=== PATIENT | female | born 1945 | race Hispanic/Latino ===

== ENCOUNTER 2017-09-20 16:52 | Inpatient (IN) | payer MEDICARE ==
[~2017-09-20] VITALS: Ht 162.6 cm; Wt 81.4 kg
[2017-09-20 17:33] LABS: BASOPHILS % (AUTO) 0.1 % (0.0-5.0); EOSINOPHILS % (AUTO) 0.2 % (0.0-8.0); LYMPHOCYTES % (AUTO) 2.4 % (21.0-51.0); MEAN CORPUSCULAR HEMOGLOBIN 36.8 pg (27.0-33.0); MEAN CORPUSCULAR HGB CONC 35.8 g/dL (32.0-36.0); MEAN CORPUSCULAR VOLUME 102.6 fL (79-99); MONOCYTES % (AUTO) 5.2 % (3.0-13.0); NEUTROPHILS % (AUTO) 92.1 % (40.0-77.0); PLATELET COUNT (AUTO) 70 K/uL (130-400); RED BLOOD CELL COUNT(AUTO) 3.02 MIL/uL (4.00-5.50); RED CELL DISTRIBUTION WIDTH 16.8 % (11.0-15.5); WHITE BLOOD COUNT (AUTO) 9.1 K/uL (4.8-10.8)
[2017-09-20] MEDS ORDERED: ONDANSETRON HCL 4 MG/2 ML VIAL ONE (17:33)
[2017-09-20] MEDS ORDERED: ACETAMINOPHEN EXTRA STRENGTH 500 MG TABLET ONE (17:45)
[2017-09-20 17:46] LABS: CREATININE 2.6 mg/dL (0.5-1.5); POTASSIUM 4.3 mmol/L (3.5-5.1)
[2017-09-20 17:50] LABS: INR 1.15 (0.85-1.15); PARTIAL THROMBOPLASTIN TIME 30.3 SEC (26.3-35.5)
[2017-09-20] MEDS ORDERED: CEFTRIAXONE SODIUM 1 GM ONE (17:57)
[2017-09-20 18:12] LABS: BILIRUBIN,TOTAL 1.9 mg/dL (0.2-1.0); CREATINE KINASE MB 2.1 ng/mL (0.5-3.6); TOTAL PROTEIN, SERUM 7.5 g/dL (6.0-8.3)
[2017-09-20 18:13] LABS: TROPONIN I 1.91 ng/mL (0.00-0.06)
[2017-09-20] MEDS ORDERED: INSULIN HUMULIN R 100 UNIT/ML 3ML ONE (18:52)
[2017-09-20 19:11] LABS: APPEARANCE,URINE CLOUDY (CLEAR); BILIRUBIN,URINE NEGATIVE (NEGATIVE); COLOR,URINE YELLOW (YELLOW); GLUCOSE, URINE (UA) 100 mg/dL (NEGATIVE); KETONES,URINE NEGATIVE (NEGATIVE); LEUKOCYTE ESTERASE ,URINE MODERATE (NEGATIVE); NITRATE,URINE NEGATIVE (NEGATIVE); OCCULT BLOOD,URINE LARGE (NEGATIVE); PROTEIN,URINE TRACE (NEGATIVE); UROBILINOGEN,URINE 0.2 mg/dL (0.2-1.0)
[2017-09-20] MEDS ORDERED: ASPIRIN 325 MG TABLET ONE (20:19)
[2017-09-20 20:34] LABS: BACTERIA,URINE Moderate /HPF (None Seen)
[2017-09-20 20:35] LABS: SQUAMOUS EPITHELIAL CELL,UR Few /LPF (0-2)
[2017-09-20] MEDS ORDERED: NITROGLYCERIN 0.4 MG SL TAB SL PRN (20:45)
[2017-09-20] MEDS ORDERED: LIDOCAINE HCL-MPF 1% 2ML VIAL IJ PRN (20:45)
[2017-09-20] MEDS ORDERED: ACETAMINOPHEN 325 MG TAB PO PRN (20:45)
[2017-09-20] MEDS ORDERED: POTASSIUM CHLORIDE 20MEQ/100ML 100 ML IV PRN (20:45)
[2017-09-20] MEDS ORDERED: DEXTROSE 50%-WATER 50 ML DISP.SYRIN IV PRN (20:45)
[2017-09-20] MEDS: SODIUM CHLORIDE 0.9% 1000ML 1,000 ML IV SCH (20:45)
[2017-09-20] MEDS ORDERED: GLUCAGON 1MG KIT 1 MG ML IM PRN (20:45)
[2017-09-20] MEDS ORDERED: POTASSIUM CHLORIDE 10% ELIXIR 20 MEQ/15 ML UDCUP PO PRN (20:45)
[2017-09-20] MEDS ORDERED: LACTULOSE 20 GM/30 ML UDCUP PO PRN (20:45)
[2017-09-20] MEDS: INSULIN R PO SSI SQ SCH (21:00)
[2017-09-20] MEDS: METOPROLOL TARTRATE 25 MG TAB PO SCH (21:00)
[2017-09-20] MEDS ORDERED: METOPROLOL TARTRATE 25 MG TAB ONE (21:38)
[2017-09-20] MEDS ORDERED: SODIUM CHLORIDE 0.9% 1000ML 1,000 ML IV ONE (21:38)
[2017-09-21] VITALS (8 sets, daily range): BP systolic 81–118; BP diastolic 40–74
[2017-09-21 00:17] LABS: CREATINE KINASE MB 1.3 ng/mL (0.5-3.6)
[2017-09-21 00:19] LABS: TROPONIN I 1.68 ng/mL (0.00-0.06)
[2017-09-21] MEDS ORDERED: CEFTRIAXONE 1GM/D5W 50ML 50 ML IV SCH (00:45)
[2017-09-21] MEDS ORDERED: ALLO300T2 PO (01:14)
[2017-09-21] MEDS ORDERED: VITA-300 PO (01:14)
[2017-09-21] MEDS ORDERED: LEVO25TA54 PO (01:14)
[2017-09-21] MEDS ORDERED: FOLI1TAB15 PO (01:14)
[2017-09-21] MEDS ORDERED: GLIP10TA9 PO (01:14)
[2017-09-21] MEDS ORDERED: FEXO-59 PO (01:14)
[2017-09-21] MEDS ORDERED: CYAN250014 PO (01:14)
[2017-09-21] MEDS ORDERED: TRAM50TA4 PO (01:14)
[2017-09-21] MEDS ORDERED: FURO20TA6 PO (01:14)
[2017-09-21] MEDS ORDERED: HYDR25TA PO (01:14)
[2017-09-21] MEDS ORDERED: KCL10IV IV (01:14)
[2017-09-21] MEDS ORDERED: SAXA1TBM3 PO (01:14)
[2017-09-21] MEDS ORDERED: LISI40TA4 PO (01:14)
[2017-09-21] MEDS ORDERED: ASPI-555 PO (01:14)
[2017-09-21] MEDS ORDERED: CEFTRIAXONE SODIUM 1 GM IVP SCH (02:00)
[2017-09-21 03:47] LABS: HEMATOCRIT 26.7 % (36-48); MEAN CORPUSCULAR HEMOGLOBIN 35.7 pg (27.0-33.0); MEAN CORPUSCULAR HGB CONC 34.3 g/dL (32.0-36.0); MEAN CORPUSCULAR VOLUME 104.2 fL (79-99); PLATELET COUNT (AUTO) 58 K/uL (130-400); RED BLOOD CELL COUNT(AUTO) 2.56 MIL/uL (4.00-5.50); RED CELL DISTRIBUTION WIDTH 16.7 % (11.0-15.5); WHITE BLOOD COUNT (AUTO) 7.7 K/uL (4.8-10.8)
[2017-09-21 03:55] LABS: INR 1.19 (0.85-1.15); PARTIAL THROMBOPLASTIN TIME 32.4 SEC (26.3-35.5); PROTHROMBIN TIME 12.5 SEC (9.6-11.6)
[2017-09-21 03:59] LABS: BAND NEUTROPHILS % (MANUAL) 22 % (0-2); LYMPHOCYTES % (MANUAL) 10 % (22-44); MAN.DIFF COMMENT-IMPRESSION MANUAL DIFFERENTIAL; MONOCYTES % (MANUAL) 5 % (2-9); SEGMENTED NEUTROPHILS % 63 % (40-70)
[2017-09-21 04:00] LABS: PLATELET MORPHOLOGY COMMENT MARKED DEC
[2017-09-21 04:01] LABS: CREATININE 2.2 mg/dL (0.5-1.5); POTASSIUM 4.8 mmol/L (3.5-5.1)
[2017-09-21] MEDS: ACETAMINOPHEN 325 MG TAB PO PRN (06:04)
[2017-09-21 06:35] LABS: CREATINE KINASE MB 2.7 ng/mL (0.5-3.6)
[2017-09-21 06:37] LABS: TROPONIN I 1.05 ng/mL (0.00-0.06)
[2017-09-21] MEDS: INSULIN R PO SSI SQ SCH ×4 (06:43→22:00)
[2017-09-21] MEDS: SODIUM CHLORIDE 0.9% 1000ML 1,000 ML IV SCH ×2 (07:45→16:31)
[2017-09-21] MEDS: METOPROLOL TARTRATE 25 MG TAB PO SCH ×2 (07:51→21:51)
[2017-09-21] MEDS: ASPIRIN 325 MG TABLET PO SCH (07:51)
[2017-09-21] MEDS ORDERED: CEFTRIAXONE 2GM+NS 100ML 100 ML IV SCH (09:45)
[2017-09-21] MEDS: CEFTRIAXONE SODIUM 2 GM VIAL IVP SCH (09:46)
[2017-09-21] MEDS: WATER FOR INJECTION,STERILE 20 ML VIAL IJ SCH (09:47)
[2017-09-21] MEDS: FAMOTIDINE 20MG TAB 20 MG TAB PO SCH (09:49)
[2017-09-21] MEDS: TRAMADOL HCL 50 MG TABLET PO PRN (21:50)
[2017-09-21] MEDS: ALLOPURINOL 300 MG TABLET PO SCH (21:51)
[2017-09-21] MEDS: GLIPIZIDE 5 MG TABLET PO SCH (21:53)
[2017-09-22] MEDS: SODIUM CHLORIDE 0.9% 1000ML 1,000 ML IV SCH (01:55)
[2017-09-22 04:05] LABS: HEMATOCRIT 27.7 % (36-48); MEAN CORPUSCULAR HEMOGLOBIN 35.5 pg (27.0-33.0); MEAN CORPUSCULAR HGB CONC 34.7 g/dL (32.0-36.0); MEAN CORPUSCULAR VOLUME 102.2 fL (79-99); PLATELET COUNT (AUTO) 63 K/uL (130-400); RED BLOOD CELL COUNT(AUTO) 2.71 MIL/uL (4.00-5.50); RED CELL DISTRIBUTION WIDTH 16.6 % (11.0-15.5); WHITE BLOOD COUNT (AUTO) 8.2 K/uL (4.8-10.8)
[2017-09-22 04:08] VITALS: BP 111/50
[2017-09-22 04:11] LABS: CREATININE 1.7 mg/dL (0.5-1.5); POTASSIUM 3.8 mmol/L (3.5-5.1)
[2017-09-22 04:19] LABS: B-TYPE NATRIURETIC PEPTIDE 257 pg/mL (0-100)
[2017-09-22] MEDS: INSULIN R PO SSI SQ SCH ×4 (06:04→21:11)
[2017-09-22 07:39] VITALS: BP 113/46
[2017-09-22] MEDS: CEFTRIAXONE SODIUM 2 GM VIAL IVP SCH (10:52)
[2017-09-22] MEDS: CETIRIZINE HCL 5 MG TABLET PO SCH (10:52)
[2017-09-22] MEDS: WATER FOR INJECTION,STERILE 20 ML VIAL IJ SCH (10:52)
[2017-09-22] MEDS: GLIPIZIDE 5 MG TABLET PO SCH ×2 (10:53→21:04)
[2017-09-22] MEDS: ALLOPURINOL 300 MG TABLET PO SCH ×2 (10:54→21:03)
[2017-09-22] MEDS: FOLIC ACID 1 MG TABLET PO SCH (10:54)
[2017-09-22] MEDS: CYANOCOBALAMIN (VITAMIN B-12) 1,000 MCG TABLET PO SCH (10:54)
[2017-09-22] MEDS: ASPIRIN 325 MG TABLET PO SCH (10:54)
[2017-09-22] MEDS: METOPROLOL TARTRATE 25 MG TAB PO SCH ×2 (10:54→21:04)
[2017-09-22] MEDS: FAMOTIDINE 20MG TAB 20 MG TAB PO SCH (10:54)
[2017-09-22] MEDS: LEVOTHYROXINE 25 MCG TABLET PO SCH (10:54)
[2017-09-22] MEDS: **HM** VIT D3 1000 UNITS PO SCH (10:55)
[2017-09-22 11:31] VITALS: BP 141/58
[2017-09-22] MEDS ORDERED: FUROSEMIDE 10 MG/ML 2ML VIAL IV SCH (11:57)
[2017-09-22 16:23] VITALS: BP 137/64
[2017-09-22] MEDS: ACETAMINOPHEN 325 MG TAB PO PRN (16:33)
[2017-09-22 19:49] VITALS: BP 106/50
[2017-09-22] MEDS: OSELTAMIVIR PHOSPHATE 75 MG CAP PO SCH (21:03)
[2017-09-22 23:45] VITALS: BP 103/47
[2017-09-23 03:31] LABS: HEMATOCRIT 29.3 % (36-48); MEAN CORPUSCULAR HEMOGLOBIN 36.2 pg (27.0-33.0); MEAN CORPUSCULAR HGB CONC 35.6 g/dL (32.0-36.0); MEAN CORPUSCULAR VOLUME 101.6 fL (79-99); PLATELET COUNT (AUTO) 54 K/uL (130-400); RED BLOOD CELL COUNT(AUTO) 2.89 MIL/uL (4.00-5.50); RED CELL DISTRIBUTION WIDTH 16.1 % (11.0-15.5); WHITE BLOOD COUNT (AUTO) 6.7 K/uL (4.8-10.8)
[2017-09-23 03:45] LABS: CREATININE 1.7 mg/dL (0.5-1.5); POTASSIUM 3.9 mmol/L (3.5-5.1)
[2017-09-23 04:00] VITALS: BP 149/60
[2017-09-23 04:37] LABS: B-TYPE NATRIURETIC PEPTIDE 335 pg/mL (0-100)
[2017-09-23] MEDS: INSULIN R PO SSI SQ SCH ×4 (06:22→20:32)
[2017-09-23 07:24] VITALS: BP 137/62
[2017-09-23] MEDS: ACETAMINOPHEN 325 MG TAB PO PRN (07:28)
[2017-09-23] MEDS ORDERED: MEROPENEM 1GM IVPB PREMIXED 1 GM IV SCH (08:15)
[2017-09-23] MEDS: **HM** VIT D3 1000 UNITS PO SCH (09:00)
[2017-09-23] MEDS: CYANOCOBALAMIN (VITAMIN B-12) 1,000 MCG TABLET PO SCH (09:13)
[2017-09-23] MEDS: GLIPIZIDE 5 MG TABLET PO SCH ×2 (09:13→20:34)
[2017-09-23] MEDS: MEROPENEM 1 GM VIAL IVP SCH ×2 (09:13→20:33)
[2017-09-23] MEDS: FAMOTIDINE 20MG TAB 20 MG TAB PO SCH (09:13)
[2017-09-23] MEDS: ALLOPURINOL 300 MG TABLET PO SCH ×2 (09:13→20:33)
[2017-09-23] MEDS: CETIRIZINE HCL 5 MG TABLET PO SCH (09:13)
[2017-09-23] MEDS: FOLIC ACID 1 MG TABLET PO SCH (09:13)
[2017-09-23] MEDS: OSELTAMIVIR PHOSPHATE 75 MG CAP PO SCH ×2 (09:13→20:33)
[2017-09-23] MEDS: METOPROLOL TARTRATE 25 MG TAB PO SCH ×2 (09:13→20:34)
[2017-09-23] MEDS: LEVOTHYROXINE 25 MCG TABLET PO SCH (09:13)
[2017-09-23 11:14] VITALS: BP 95/43
[2017-09-23] MEDS: ASPIRIN 81 MG EC TAB PO SCH (11:33)
[2017-09-23 16:33] VITALS: BP 134/64
[2017-09-23 19:55] VITALS: BP 152/60
[2017-09-23 23:54] VITALS: BP 136/54
[2017-09-24] MEDS: ACETAMINOPHEN 325 MG TAB PO PRN (03:15)
[2017-09-24 03:30] VITALS: BP 119/57
[2017-09-24 04:30] LABS: HEMATOCRIT 24.3 % (36-48); MEAN CORPUSCULAR HEMOGLOBIN 37.2 pg (27.0-33.0); MEAN CORPUSCULAR HGB CONC 36.7 g/dL (32.0-36.0); MEAN CORPUSCULAR VOLUME 101.2 fL (79-99); PLATELET COUNT (AUTO) 59 K/uL (130-400); RED BLOOD CELL COUNT(AUTO) 2.41 MIL/uL (4.00-5.50); RED CELL DISTRIBUTION WIDTH 16.2 % (11.0-15.5); WHITE BLOOD COUNT (AUTO) 5.3 K/uL (4.8-10.8)
[2017-09-24 04:43] LABS: CREATININE 1.4 mg/dL (0.5-1.5); POTASSIUM 3.6 mmol/L (3.5-5.1)
[2017-09-24] MEDS: INSULIN R PO SSI SQ SCH ×4 (06:21→22:20)
[2017-09-24 07:31] VITALS: BP 117/54
[2017-09-24] MEDS: FAMOTIDINE 20MG TAB 20 MG TAB PO SCH (08:37)
[2017-09-24] MEDS: CYANOCOBALAMIN (VITAMIN B-12) 1,000 MCG TABLET PO SCH (08:37)
[2017-09-24] MEDS: METOPROLOL TARTRATE 25 MG TAB PO SCH ×2 (08:37→22:14)
[2017-09-24] MEDS: ALLOPURINOL 300 MG TABLET PO SCH ×2 (08:37→22:14)
[2017-09-24] MEDS: FOLIC ACID 1 MG TABLET PO SCH (08:37)
[2017-09-24] MEDS: ASPIRIN 81 MG EC TAB PO SCH (08:37)
[2017-09-24] MEDS: OSELTAMIVIR PHOSPHATE 75 MG CAP PO SCH ×2 (08:37→22:20)
[2017-09-24] MEDS: LEVOTHYROXINE 25 MCG TABLET PO SCH (08:37)
[2017-09-24] MEDS: CETIRIZINE HCL 5 MG TABLET PO SCH (08:37)
[2017-09-24] MEDS: MEROPENEM 1 GM VIAL IVP SCH ×2 (08:38→22:15)
[2017-09-24] MEDS: GLIPIZIDE 5 MG TABLET PO SCH ×2 (08:38→22:15)
[2017-09-24] MEDS: **HM** VIT D3 1000 UNITS PO SCH (08:41)
[2017-09-24] MEDS: TRAMADOL HCL 50 MG TABLET PO PRN (09:36)
[2017-09-24 11:42] VITALS: BP 129/57
[2017-09-24] MEDS: POTASSIUM CHLORIDE 20 MEQ ERTAB PO PRN ×2 (14:20→16:17)
[2017-09-24 16:32] VITALS: BP 127/61
[2017-09-24 20:00] VITALS: BP 126/56
[2017-09-25] VITALS (7 sets, daily range): BP systolic 111–141; BP diastolic 48–63
[2017-09-25] MEDS: TRAMADOL HCL 50 MG TABLET PO PRN (03:05)
[2017-09-25 03:46] LABS: HEMATOCRIT 26.7 % (36-48); MEAN CORPUSCULAR HEMOGLOBIN 35.7 pg (27.0-33.0); MEAN CORPUSCULAR HGB CONC 35.3 g/dL (32.0-36.0); MEAN CORPUSCULAR VOLUME 101.3 fL (79-99); PLATELET COUNT (AUTO) 64 K/uL (130-400); RED BLOOD CELL COUNT(AUTO) 2.63 MIL/uL (4.00-5.50); RED CELL DISTRIBUTION WIDTH 16.2 % (11.0-15.5); WHITE BLOOD COUNT (AUTO) 5.3 K/uL (4.8-10.8)
[2017-09-25] MEDS: INSULIN R PO SSI SQ SCH ×4 (06:07→21:00)
[2017-09-25] MEDS: **HM** VIT D3 1000 UNITS PO SCH (09:00)
[2017-09-25] MEDS: ASPIRIN 81 MG EC TAB PO SCH (09:18)
[2017-09-25] MEDS: FOLIC ACID 1 MG TABLET PO SCH (09:18)
[2017-09-25] MEDS: ALLOPURINOL 300 MG TABLET PO SCH ×2 (09:18→21:40)
[2017-09-25] MEDS: LEVOTHYROXINE 25 MCG TABLET PO SCH (09:18)
[2017-09-25] MEDS: METOPROLOL TARTRATE 25 MG TAB PO SCH ×2 (09:18→21:40)
[2017-09-25] MEDS: CETIRIZINE HCL 5 MG TABLET PO SCH (09:18)
[2017-09-25] MEDS: GLIPIZIDE 5 MG TABLET PO SCH ×2 (09:19→21:40)
[2017-09-25] MEDS: FAMOTIDINE 20MG TAB 20 MG TAB PO SCH (09:19)
[2017-09-25] MEDS: OSELTAMIVIR PHOSPHATE 75 MG CAP PO SCH ×2 (09:21→21:40)
[2017-09-25] MEDS: MEROPENEM 1 GM VIAL IVP SCH ×2 (09:21→21:40)
[2017-09-25] MEDS: CYANOCOBALAMIN (VITAMIN B-12) 1,000 MCG TABLET PO SCH (09:23)
[2017-09-26 04:00] VITALS: BP 120/58
[2017-09-26 04:08] LABS: HEMATOCRIT 27.4 % (36-48); MEAN CORPUSCULAR HEMOGLOBIN 36.3 pg (27.0-33.0); MEAN CORPUSCULAR HGB CONC 35.6 g/dL (32.0-36.0); MEAN CORPUSCULAR VOLUME 102.1 fL (79-99); PLATELET COUNT (AUTO) 76 K/uL (130-400); RED BLOOD CELL COUNT(AUTO) 2.68 MIL/uL (4.00-5.50); RED CELL DISTRIBUTION WIDTH 16.4 % (11.0-15.5); WHITE BLOOD COUNT (AUTO) 5.5 K/uL (4.8-10.8)
[2017-09-26] MEDS: INSULIN R PO SSI SQ SCH ×3 (06:20→17:14)
[2017-09-26 07:34] VITALS: BP 117/44
[2017-09-26] MEDS: ASPIRIN 81 MG EC TAB PO SCH (08:15)
[2017-09-26] MEDS: FOLIC ACID 1 MG TABLET PO SCH (08:15)
[2017-09-26] MEDS: CETIRIZINE HCL 5 MG TABLET PO SCH (08:15)
[2017-09-26] MEDS: FAMOTIDINE 20MG TAB 20 MG TAB PO SCH (08:15)
[2017-09-26] MEDS: ALLOPURINOL 300 MG TABLET PO SCH ×2 (08:15→20:09)
[2017-09-26] MEDS: LEVOTHYROXINE 25 MCG TABLET PO SCH (08:15)
[2017-09-26] MEDS: CYANOCOBALAMIN (VITAMIN B-12) 1,000 MCG TABLET PO SCH (08:15)
[2017-09-26] MEDS: OSELTAMIVIR PHOSPHATE 75 MG CAP PO SCH ×2 (08:16→20:09)
[2017-09-26] MEDS: GLIPIZIDE 5 MG TABLET PO SCH ×2 (08:16→20:10)
[2017-09-26] MEDS: **HM** VIT D3 1000 UNITS PO SCH (08:16)
[2017-09-26] MEDS: MEROPENEM 1 GM VIAL IVP SCH ×2 (08:16→20:09)
[2017-09-26] MEDS: METOPROLOL TARTRATE 25 MG TAB PO SCH ×2 (08:16→20:10)
[2017-09-26 11:32] VITALS: BP 119/45
[2017-09-26 16:09] VITALS: BP 122/52
[2017-09-26 19:46] VITALS: BP 139/50
[2017-09-27 01:42] VITALS: BP 131/58
[2017-09-27 03:51] LABS: HEMATOCRIT 26.7 % (36-48); MEAN CORPUSCULAR HEMOGLOBIN 35.2 pg (27.0-33.0); MEAN CORPUSCULAR HGB CONC 34.5 g/dL (32.0-36.0); PLATELET COUNT (AUTO) 74 K/uL (130-400); RED BLOOD CELL COUNT(AUTO) 2.62 MIL/uL (4.00-5.50); RED CELL DISTRIBUTION WIDTH 16.4 % (11.0-15.5); WHITE BLOOD COUNT (AUTO) 5.4 K/uL (4.8-10.8)
[2017-09-27 04:00] VITALS: BP 131/53
[2017-09-27 04:07] LABS: CREATININE 1.3 mg/dL (0.5-1.5); POTASSIUM 4.7 mmol/L (3.5-5.1)
[2017-09-27] MEDS: INSULIN R PO SSI SQ SCH ×2 (06:27→11:30)
[2017-09-27 07:55] VITALS: BP 122/52
[2017-09-27] MEDS: METOPROLOL TARTRATE 25 MG TAB PO SCH (09:00)
[2017-09-27] MEDS: OSELTAMIVIR PHOSPHATE 75 MG CAP PO SCH (09:00)
[2017-09-27] MEDS: FOLIC ACID 1 MG TABLET PO SCH (09:00)
[2017-09-27] MEDS: CETIRIZINE HCL 5 MG TABLET PO SCH (09:00)
[2017-09-27] MEDS: CYANOCOBALAMIN (VITAMIN B-12) 1,000 MCG TABLET PO SCH (09:00)
[2017-09-27] MEDS: **HM** VIT D3 1000 UNITS PO SCH (09:00)
[2017-09-27] MEDS: ASPIRIN 81 MG EC TAB PO SCH (09:00)
[2017-09-27] MEDS: MEROPENEM 1 GM VIAL IVP SCH (09:00)
[2017-09-27] MEDS: FAMOTIDINE 20MG TAB 20 MG TAB PO SCH (09:00)
[2017-09-27] MEDS: ALLOPURINOL 300 MG TABLET PO SCH (09:00)
[2017-09-27] MEDS: GLIPIZIDE 5 MG TABLET PO SCH (09:00)
[2017-09-27 11:39] VITALS: BP 122/55
[2017-09-28] MEDS ORDERED: LEVOTHYROXINE 25 MCG TABLET PO SCH (06:30)
== END 2017-09-27 18:05 | DRG 871 ==
LOC: EDH 16:52 → EDHIP 20:14 → OBSVTOIN 20:14 → 2AH 09-21 00:36
PROVIDERS: ADMIT Internal Medicine; ATTEND Internal Medicine
DX: A41.9 Sepsis, unspecified organism (principal); I21.4 Non-ST elevation (NSTEMI) myocardial infarction; R65.21 Severe sepsis with septic shock; N17.9 Acute kidney failure, unspecified; E11.21 Type 2 diabetes mellitus with diabetic nephropathy; D69.6 Thrombocytopenia, unspecified; E11.22 Type 2 diabetes mellitus with diabetic chronic kidney disease; E11.65 Type 2 diabetes mellitus with hyperglycemia; N18.3 Chronic kidney disease, stage 3 (moderate); N39.0 Urinary tract infection, site not specified; E87.1 Hypo-osmolality and hyponatremia; I13.0 Hypertensive heart and chronic kidney disease with heart failure and stage 1 through stage 4 chronic kidney disease, or unspecified chronic kidney disease; I50.32 Chronic diastolic (congestive) heart failure; L03.311 Cellulitis of abdominal wall; B96.20 Unspecified Escherichia coli [E. coli] as the cause of diseases classified elsewhere; D46.9 Myelodysplastic syndrome, unspecified; B96.89 Other specified bacterial agents as the cause of diseases classified elsewhere; E03.9 Hypothyroidism, unspecified; E78.5 Hyperlipidemia, unspecified; E86.0 Dehydration; I35.0 Nonrheumatic aortic (valve) stenosis; I65.23 Occlusion and stenosis of bilateral carotid arteries; I87.2 Venous insufficiency (chronic) (peripheral); J84.10 Pulmonary fibrosis, unspecified; M10.9 Gout, unspecified; Z16.24 Resistance to multiple antibiotics; Z90.721 Acquired absence of ovaries, unilateral; Z83.3 Family history of diabetes mellitus
CPT/HCPCS: 36415; 71045; 71046; 74176; 80048; 80053; 80061; 81001; 82550; 82553; 82948; 83605; 83874; 83880; 84484; 85025; 85027; 85610; 85730; 87040; 87088; 87186; 87804; 93005; 93306; 93970; 99291; A4218; J0696; J1815; J1940; J2185; J2405; J7030

== ENCOUNTER → 2017-12-08 | Outpatient (CLI) | payer MEDICARE ==
[~2017-12-08] MED LIST: ALLO300T2 PO; ASPI-555 PO; CYAN250014 PO; FEXO-59 PO; FOLI1TAB15 PO; FURO20TA6 PO; GLIP10TA9 PO; HYDR25TA PO; KCL10IV IV; LEVO25TA54 PO; LISI40TA4 PO; SAXA1TBM3 PO; TRAM50TA4 PO; VITA-300 PO
== END | disposition home or self-care (01) ==
LOC: RAH 09:44
PROVIDERS: ATTEND Family Medicine
DX: Z12.31 Encounter for screening mammogram for malignant neoplasm of breast (principal)
CPT/HCPCS: 77067

== ENCOUNTER → 2018-01-31 | Outpatient (CLI) | payer MEDICARE | END | disposition home or self-care (01) | LOC: SHCH 09:55 | PROVIDERS: ATTEND Internal Medicine Cardiovascular Disease | DX: I73.9 Peripheral vascular disease, unspecified (principal); R09.89 Other specified symptoms and signs involving the circulatory and respiratory systems | CPT/HCPCS: 93880; 93925 ==

== ENCOUNTER → 2018-04-21 | Outpatient (CLI) | payer MEDICARE | END | disposition home or self-care (01) | LOC: SHCH 03-31 08:42 | PROVIDERS: ATTEND Internal Medicine Cardiovascular Disease | DX: I13.0 Hypertensive heart and chronic kidney disease with heart failure and stage 1 through stage 4 chronic kidney disease, or unspecified chronic kidney disease (principal); E11.22 Type 2 diabetes mellitus with diabetic chronic kidney disease; N18.3 Chronic kidney disease, stage 3 (moderate); I50.32 Chronic diastolic (congestive) heart failure; E78.00 Pure hypercholesterolemia, unspecified; E03.9 Hypothyroidism, unspecified | CPT/HCPCS: 93306 ==

== ENCOUNTER → 2018-06-24 | Outpatient (CLI) | payer MEDICARE | END | disposition home or self-care (01) | LOC: RAH 08:14 | PROVIDERS: ATTEND Internal Medicine Gastroenterology | DX: K74.60 Unspecified cirrhosis of liver (principal); K80.20 Calculus of gallbladder without cholecystitis without obstruction | CPT/HCPCS: 76700; 93975 ==

== ENCOUNTER 2018-07-15 10:08 | Emergency (ER) | payer MEDICARE ==
[2018-07-15] MEDS ORDERED: PREDNISONE 20 MG TABLET ONE (10:57)
[2018-07-15] MEDS ORDERED: IPRATROPIUM/ALBUTEROL SULFATE 3 ML SOLUTION IH ONE (11:01)
== END 2018-07-15 11:58 | disposition home or self-care (01) ==
LOC: EDH 10:08
DX: J20.9 Acute bronchitis, unspecified (principal); E78.5 Hyperlipidemia, unspecified; I11.0 Hypertensive heart disease with heart failure; I50.9 Heart failure, unspecified; E11.9 Type 2 diabetes mellitus without complications
CPT/HCPCS: 71045; 94640

== ENCOUNTER → 2019-07-03 | Outpatient (CLI) | payer MEDICARE | END | disposition home or self-care (01) | LOC: SHCH 08:14 | PROVIDERS: ATTEND Internal Medicine Cardiovascular Disease | DX: I08.0 Rheumatic disorders of both mitral and aortic valves (principal) | CPT/HCPCS: 93306 ==

== ENCOUNTER → 2019-07-11 | Outpatient (CLI) | payer MEDICARE | END | disposition home or self-care (01) | LOC: SHCH 09:13 | PROVIDERS: ATTEND Internal Medicine Cardiovascular Disease | DX: I70.203 Unspecified atherosclerosis of native arteries of extremities, bilateral legs (principal); I65.23 Occlusion and stenosis of bilateral carotid arteries | CPT/HCPCS: 93880; 93925 ==